=== PATIENT | female | born 1955 | race Caucasian/White ===

== ENCOUNTER → 2023-12-02 06:20 | Day surgery (SDC) | payer MEDICARE, SELFPAY | LOC: GI 06:20 | PROVIDERS: ATTENDING PHYSICIAN Internal Medicine Gastroenterology; FAMILY PHYSICIAN Family Medicine | DX: K57.30 Diverticulosis of large intestine without perforation or abscess without bleeding (principal); K64.8 Other hemorrhoids; R19.4 Change in bowel habit; R19.7 Diarrhea, unspecified; Z86.010 Personal history of colon polyps | CPT/HCPCS: 45380; 88305 ==

== ENCOUNTER → 2023-12-09 08:11 | Outpatient (REF) | payer MEDICARE, SELFPAY | LOC: PAVMRI 08:11 | PROVIDERS: ATTENDING PHYSICIAN Family Medicine | DX: T84.52XA Infection and inflammatory reaction due to internal left hip prosthesis, initial encounter (principal); R05.9 Cough, unspecified | CPT/HCPCS: 71046; 73723; A9575 ==